=== PATIENT | male | born 1975 | race Caucasian/White ===

== ENCOUNTER 2017-10-13 18:30 | Emergency (ER) | payer MEDICAID ==
[~2017-10-13] VITALS: Ht 177.8 cm; Wt 90.7 kg
[2017-10-13 18:38] VITALS: BP 132/82
[2017-10-13] MEDS ORDERED: cefTRIAXone SOD 1,000 MG VL IM ONE (19:45)
[2017-10-13] MEDS ORDERED: DEXAMETHASONE SOD PHOS 10MG/1ML VIAL INJ IM ONE (19:45)
== END 2017-10-13 20:36 | disposition home or self-care (01) ==
LOC: ER 18:30
DX: J02.0 Streptococcal pharyngitis (principal); F17.210 Nicotine dependence, cigarettes, uncomplicated
CPT/HCPCS: 96372; 99284; J0696; J1100

== ENCOUNTER 2024-02-10 18:28 | Inpatient (IN) | payer MEDICAID ==
[~2024-02-10] VITALS: Ht 177.8 cm; Wt 115.0 kg
[2024-02-10 21:15] VITALS: PULSE 96; RESP 18; O2SAT 94
[2024-02-10 21:18] LABS: Basophils # (auto) 0.1 10 ^3/uL (0-0.2); Basophils % (auto) 0.6 % (0.0-2.0); Eosinophils # (auto) 0.4 10 ^3/uL (0-0.8); Eosinophils % (auto) 3.6 % (0.0-7.0); Hematocrit 40.5 % (41.0-53.0); Hemoglobin 13.5 g/dL (13.5-17.5); Lymphocytes # (auto) 3.1 10 ^3/uL (0.4-5.4); Lymphocytes % (auto) 31.3 % (10.0-50.0); Mean Corpuscular Hemoglobin 29.1 pg (28.0-32.0); Mean Corpuscular Hgb Conc. 33.2 g/dL (32.0-36.0); Mean Corpuscular Volume 87.6 fL (80.0-100.0); Monocytes # (auto) 0.8 10 ^3/uL (0-1.3); Monocytes % (auto) 8.4 % (0.0-12.0); Neutrophils # (auto) 5.6 10 ^3/uL (1.6-8.6); Neutrophils % (auto) 56.1 % (37.0-80.0); Platelet Count (auto) 371 10^3/uL (140-450); Red Blood Cells 4.63 10^6/uL (4.5-5.90); Red Cell Distribution Width 14.3 % (11.8-14.3)
[2024-02-10] MEDS: VANCOMYCIN 1GM/200ML 200 ML IV ONE (21:31)
[2024-02-10 21:54] LABS: Alanine Aminotransferase 33 U/L (7-40); Alkaline Phosphatase 86 U/L (46-116); Anion Gap 6 (5-15); Aspartate Aminotransferase 32 U/L (13-40); BUN/Creatinine Ratio 10.8 (10.0-20.0); Bilirubin, Total 0.3 mg/dL (0.2-1.0); Blood Urea Nitrogen 10 mg/dL (9-23); Calcium 9.1 mg/dL (8.7-10.4); Carbon Dioxide 27 mmol/L (20-30); Chloride 109 mmol/L (98-107); Glucose 109 mg/dL (74-106); Potassium 3.4 mmol/L (3.5-5.1); Sodium 142 mmol/L (136-145); Total Protein 7.1 g/dL (5.7-8.2)
[2024-02-10] MEDS: KETOROLAC TROMETH 30 MG/ML 1ML VIAL IV ONE (22:27)
[2024-02-10] MEDS ORDERED: ACETAMINOPHEN 325 MG TAB PO PRN (23:30)
[2024-02-10] MEDS ORDERED: VANCOMYCIN PER PHARMACY 0 MG IV SCH (23:30)
[2024-02-10] MEDS ORDERED: ONDANSETRON HCL 4 MG/2 ML VIAL IV PRN (23:30)
[2024-02-10] MEDS ORDERED: NITROGLYCERIN 0.4 MG SL TAB SL PRN (23:30)
[2024-02-10] MEDS ORDERED: MORPHINE SULFATE INJ 2 MG/ml SYRG IV PRN (23:30)
[2024-02-10] MEDS: POTASSIUM CHL 20 Meq TABLET PO ONE (23:40)
[2024-02-10] MEDS: HYDROcodone-ACET 5/325MG TAB PO PRN (23:42)
[2024-02-11] VITALS (7 sets, daily range): BP systolic 108–126; BP diastolic 59–91; PULSE 68–83; RESP 16–20; TEMP 97.5–98; O2SAT 93–100
[2024-02-11 04:41] LABS: Basophils # (auto) 0.1 10 ^3/uL (0-0.2); Basophils % (auto) 0.9 % (0.0-2.0); Eosinophils # (auto) 0.4 10 ^3/uL (0-0.8); Eosinophils % (auto) 4.6 % (0.0-7.0); Hematocrit 38.5 % (41.0-53.0); Hemoglobin 13.2 g/dL (13.5-17.5); Lymphocytes # (auto) 3.2 10 ^3/uL (0.4-5.4); Mean Corpuscular Hemoglobin 29.9 pg (28.0-32.0); Mean Corpuscular Hgb Conc. 34.2 g/dL (32.0-36.0); Mean Corpuscular Volume 87.3 fL (80.0-100.0); Monocytes # (auto) 0.8 10 ^3/uL (0-1.3); Monocytes % (auto) 10.4 % (0.0-12.0); Neutrophils # (auto) 3.7 10 ^3/uL (1.6-8.6); Neutrophils % (auto) 45.1 % (37.0-80.0); Nucleated Red Blood Cells % 0.1 %; Platelet Count (auto) 302 10^3/uL (140-450); Red Blood Cells 4.41 10^6/uL (4.5-5.90); Red Cell Distribution Width 14.1 % (11.8-14.3); White Blood Cell 8.2 10^3/uL (4.4-10.8)
[2024-02-11 04:52] LABS: Alanine Aminotransferase 30 U/L (7-40); Albumin 3.7 g/dL (3.2-4.8); Alkaline Phosphatase 70 U/L (46-116); Anion Gap 8 (5-15); Aspartate Aminotransferase 28 U/L (13-40); BUN/Creatinine Ratio 12.7 (10.0-20.0); Bilirubin, Total 0.3 mg/dL (0.2-1.0); Blood Urea Nitrogen 9 mg/dL (9-23); Calcium 8.5 mg/dL (8.7-10.4); Carbon Dioxide 24 mmol/L (20-30); Chloride 109 mmol/L (98-107); Glucose 96 mg/dL (74-106); Potassium 3.5 mmol/L (3.5-5.1); Sodium 141 mmol/L (136-145); Total Protein 6.6 g/dL (5.7-8.2)
[2024-02-11] MEDS: SODIUM CHLOR 0.9% PF (SALINE LOCK) 10ML VIAL/SYR IV SCH (06:12)
[2024-02-11 08:33] LABS: Triglycerides 111 mg/dL (< 150)
[2024-02-11 08:34] LABS: LDL Cholesterol 104 mg/dL (< 100)
[2024-02-11 08:35] LABS: Cholesterol 147 mg/dL (< 200); HDL Cholesterol 26 mg/dL (40-59)
[2024-02-11] MEDS: MORPHINE SULFATE INJ 2 MG/ml SYRG IV PRN (09:35)
[2024-02-11] MEDS: ENOXAPARIN SOD 40 MG/0.4 ML SYRINGE SC SCH (09:36)
[2024-02-11 11:34] LABS: Urine Bacteria MANY /hpf (None Seen); Urine Blood Negative /uL (Negative); Urine Clarity Ex.Turbid (Clear); Urine Color Light-Orange (Yellow); Urine Mucus MANY (None Seen); Urine Protein, UAD 1+ (Negative); Urine Specific Gravity 1.037 (1.001-1.035); Urine Urobilinogen 2 mg/dL (Negative); Urine WBC 9 /hpf (0 - 3)
[2024-02-11 11:41] LABS: Amphetamine Screen, Urine Pos (NEGATIVE)
[2024-02-11 11:42] LABS: Barbiturate Scree,Urine Neg (NEGATIVE); Benzodiazephine Screen, Urine Neg (NEGATIVE); Cocaine Screen, Urine Neg (NEGATIVE); Opiate Scree,Urine Pos (NEGATIVE); Phencyclidine Screen, Urine Neg (NEGATIVE)
[2024-02-11 11:43] LABS: Cannabinoid Screen, Urine Neg (NEGATIVE)
[2024-02-11] MEDS: VANCOMYCIN 1.25GM/250ML 250 ML IV ONE (12:08)
[2024-02-11] MEDS: NICOTINE 14 MG/24HR TOPICAL PATCH TD ONE (14:38)
[2024-02-11] MEDS: CLINDAMYCIN 600MG IV 50 ML IV SCH (22:01)
[2024-02-11] MEDS: DOCUSATE SOD 100 MG CAP PO PRN (22:02)
[2024-02-12] VITALS (8 sets, daily range): BP systolic 105–126; BP diastolic 53–83; PULSE 63–81; RESP 18–20; TEMP 97.7–98.2; O2SAT 94–98
[2024-02-12] MEDS: NICOTINE 14 MG/24HR TOPICAL PATCH TD SCH (10:14)
[2024-02-13] VITALS (7 sets, daily range): BP systolic 130–139; BP diastolic 75–84; PULSE 70–81; RESP 16–20; TEMP 97.5–98.3; O2SAT 93–98
[2024-02-14 01:09] VITALS: BP 138/89; PULSE 78; RESP 17; TEMP 98; O2SAT 100
[2024-02-14 05:00] VITALS: BP 147/86; PULSE 78; RESP 18; TEMP 97.7; O2SAT 100
[2024-02-14 08:00] VITALS: PULSE 72; RESP 22; O2SAT 97
== END 2024-02-14 08:58 | disposition left against medical advice (07) | DRG 383 ==
LOC: ER 18:28 → OVERFLOW 23:31 → EAST 23:31
PROVIDERS: ADMIT Internal Medicine Geriatric Medicine; ATTEND Internal Medicine Geriatric Medicine
DX: L03.116 Cellulitis of left lower limb (principal); A52.16 Charcot's arthropathy (tabetic); E66.01 Morbid (severe) obesity due to excess calories; E87.6 Hypokalemia; Z53.29 Procedure and treatment not carried out because of patient's decision for other reasons; F17.210 Nicotine dependence, cigarettes, uncomplicated; E78.2 Mixed hyperlipidemia; Z79.899 Other long term (current) drug therapy; Z68.36 Body mass index [BMI] 36.0-36.9, adult; Z82.49 Family history of ischemic heart disease and other diseases of the circulatory system
CPT/HCPCS: 36415; 73590; 80053; 80061; 80307; 81001; 83036; 83735; 84443; 85025; 87081; 93970; G0378; J1885; J3490

== ENCOUNTER 2025-02-23 01:07 | Emergency (ER) | payer MEDICAID ==
[~2025-02-23] VITALS: Ht 180.3 cm; Wt 108.9 kg
[2025-02-23 01:08] VITALS: BP 123/97; PULSE 100; RESP 19; TEMP 99.6; O2SAT 98
--- NOTE | 2025-02-23 02:32 | ED.PDOC ---
Eye-HPI HPI Comments PT PRESENTED TO ED CC LEFT EAR PAIN X3 DSY. PT STATES HE FEELS PREASSURE AND PAIN THAT HAS INCREASED SINCE 3 DAYS AGO. +DIZZINESS, -SOB. PT A&OX4, GCS 15, AMBULATORY. DENIES FEVER, CHILLS, DIFFICULTY HEARING, NAUSEA OR VOMITING DENIES ANY KNOWN INJURY. Chief Complaint: Earache Time Seen by MD: 01:35 Primary Care Provider: NONE Reviewed Notes: Nurses Notes, Medications, Allergies Allergies: Coded Allergies: NO KNOWN ALLERGIES (Unverified , 03/08/15) Home Meds No Active Prescriptions or Reported Meds Information Source: Patient Mode of Arrival: Ambulatory Past Medical History PAST MEDICAL HISTORY: Denies Surgical History: Denies all surgeries Family History Family History: No family hx of Cancer, No family hx of DM Family History (Other): peripheral vascular disease Social History Smoker: Cigarettes, Greater Than 1 Pack/Day Alcohol: Occasionally Drugs: Marijuana Lives In: Home All Other Systems: Reviewed and Negative (SEE HPI) Physical Exam General Appearance: No Apparent Distress, Normal HEENT: Pharynx Normal, TMs Normal, Other (LEFT EAR CANAL EDEMATOUS WITH ERYTHEMA, TRACE YELLOW DRAINAGE ) Neck: Full Range of Motion, Non-Tender Respiratory: Lungs Clear, No Respiratory Distress, Normal Breath Sounds Cardiovascular: No Murmur, Normal Peripheral Pulses, Regular Rate/Rhythm Breast Exam: Deferred Gastrointestinal: Non Tender, Soft Genitalia: Deferred Pelvic: Deferred Rectal: Deferred Extremities: Normal range of motion Musculoskeletal : Apperance: Normal Neurologic: Alert, No Motor Deficits, Normal Affect, Normal Mood, No Sensory Deficits Cerebellar Function: Normal Reflexes: NOT DONE Skin: Dry, Normal Color, Warm Lymphatic: No Adenopathy Was a procedure done? Was a procedure done?: No EENT DIFF Eye: N/A Ear: Cerumen Impaction, Foreign Body, Otitis Externa, Otitis Media, Perforation, Dental, Pharyngitis X-Ray, Labs, Meds, VS Vital Signs Date Time Temp Pulse Resp B/P (MAP) Pulse Ox O2 Delivery O2 Flow Rate FiO2 02/23/25 01:08 99.6 100 19 123/97 98 99.6 Time of 1ST Reevaluation: 01:45 Reevaluation 1ST: Unchanged Time of 2ND Reevaluation: 02:39 Reevaluation 2ND: Improved Patient Education/Counseling: Diagnosis, Treatment, Prognosis, Need For Follow Up Family Education/Counseling: No Family Present SEPSIS Sepsis Screen Date sepsis recognized/suspect: Feb 23, 2025 Time Sepsis recognized/suspect: 0108 Recent Procedure: No On Antibiotic Therapy: No Respiratory Rate >20: No Heart Rate >90: No Temp<36 C (96.8 F) or >38.3 C: No SBP <90 or MAP <65 mmHG: No New Acute Mental Status Change: No Is the patient on CPAP, BIPAP,: No Vital Signs Date Time Temp Pulse Resp B/P (MAP) Pulse Ox O2 Delivery O2 Flow Rate FiO2 02/23/25 01:08 99.6 100 19 123/97 98 99.6 Departure 1 Departure Time of Disposition: 02:30 Impression: Primary Impression: Otitis externa of left ear Qualified Codes: H60.502 - Unspecified acute noninfective otitis externa, left ear Disposition: 01 HOME / SELF CARE / HOMELESS Condition: Stable e-Prescriptions Eyshkswa-Czohjmizy-Gu (Otic) (Cortisporin Otic Susp) [address] DROP LEFT EAR TID for 7 Days, #5 ML Prov: ZAC JIMENEZ 02/23/25 Discharged With: Self Critical Care Note Critical Care Time?: No Stability Stability form required: No ZAC JIMENEZ Feb 23, 2025 02:32
[2025-02-23] MEDS ORDERED: COROSUS LEFT EAR (02:39)
== END 2025-02-23 02:56 | disposition home or self-care (01) ==
LOC: ER 01:07
DX: H60.92 Unspecified otitis externa, left ear (principal); F17.210 Nicotine dependence, cigarettes, uncomplicated
CPT/HCPCS: 96372; 99283; J1100

== ENCOUNTER 2025-05-09 09:40 | Outpatient (CLI) | payer MEDICAID ==
[2025-05-09 10:32] LABS: Hematocrit 45.6 % (41.0-53.0); Hemoglobin 16.0 g/dL (13.5-17.5); Mean Corpuscular Hemoglobin 30.2 pg (28.0-32.0); Mean Corpuscular Volume 86.3 fL (80.0-100.0); Nucleated Red Blood Cells % 0.0 %
[2025-05-09 10:48] LABS: Urine Amorphous Crystal FEW /hpf (None Seen); Urine Protein, UAD Negative (Negative)
[2025-05-09 10:57] LABS: Alanine Aminotransferase 33 U/L (7-40); Albumin 4.2 g/dL (3.2-4.8); Alkaline Phosphatase 88 U/L (46-116); Anion Gap 10 (5-15); BUN/Creatinine Ratio 8.3 (10.0-20.0); Blood Urea Nitrogen 8 mg/dL (9-23); Calcium 9.6 mg/dL (8.7-10.4); Carbon Dioxide 30 mmol/L (20-31); Chloride 102 mmol/L (98-107); Cholesterol 208 mg/dL (< 200); Glucose 129 mg/dL (74-106); Potassium 4.4 mmol/L (3.5-5.1); Sodium 142 mmol/L (136-145); Total Protein 7.6 g/dL (5.7-8.2); Triglycerides 230 mg/dL (< 150)
[2025-05-09 10:59] LABS: Bilirubin, Total 0.3 mg/dL (0.2-1.0); HDL Cholesterol 29 mg/dL (40-59)
== END 2025-05-09 17:00 | disposition home or self-care (01) ==
LOC: LAB 09:40
PROVIDERS: ATTEND Internal Medicine
DX: Z00.00 Encounter for general adult medical examination without abnormal findings (principal)
CPT/HCPCS: 36415; 80053; 80061; 81001; 82306; 83036; 84439; 84443; 85025